=== PATIENT | male | born 2000 | race Caucasian/White ===

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

== ENCOUNTER 2018-01-29 21:08 | Emergency (ER) | payer MEDICAID ==
[2018-01-30] MEDS ORDERED: SILVER SULFADIAZINE 1% CREAM 50 GM TP ONE (01:06)
[2018-01-30] MEDS ORDERED: HYDROCODONE/ACETAMINOPHEN 5-325 MG TABLET PO ONE (01:06)
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
[2018-01-30] MEDS ORDERED: SILVER SULFADIAZINE 1% CREAM 25 GM TP ONE (01:22)
[2018-01-30 01:45] VITALS: BP 129/67
== END 2018-01-30 01:45 | disposition home or self-care (01) ==
LOC: ER 21:08
DX: T23.202A Burn of second degree of left hand, unspecified site, initial encounter (principal); T23.232A Burn of second degree of multiple left fingers (nail), not including thumb, initial encounter; X19.XXXA Contact with other heat and hot substances, initial encounter; F17.200 Nicotine dependence, unspecified, uncomplicated
CPT/HCPCS: 99283; J3490

== ENCOUNTER 2018-04-06 13:21 | Emergency (ER) | payer SELFPAY ==
[2018-04-06 13:28] VITALS: BP 126/79
[2018-04-06] MEDS ORDERED: IBUPROFEN 800 MG TABLET PO ONE (13:48)
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
--- NOTE | 2018-04-06 13:59 | RADIOLOGY REPORT (SQ) ---
EXAM DESCRIPTION: HAND LEFT 3 VIEWS COMPLETED DATE/TIME: 04/06/2018 1:51 pm REASON FOR STUDY: pain and injury COMPARISON: None. EXAM PARAMETERS: NUMBER OF VIEWS: Three views. TECHNIQUE: AP, lateral and oblique radiographic images acquired of the left hand. LIMITATIONS: None. FINDINGS: MINERALIZATION: Normal. BONES: Transverse fracture of the midshaft of the 5th metacarpal with angulation. JOINTS: No effusions. SOFT TISSUES: Soft tissue swelling. No foreign body. OTHER: No other significant finding. IMPRESSION: FRACTURE OF THE MIDSHAFT OF THE 5TH METACARPAL WITH ANGULATION. TECHNICAL DOCUMENTATION: JOB ID: [id number] [employer]- All Rights Reserved Reading location - IP/workstation name: [email or web address]
== END 2018-04-06 14:55 | disposition home or self-care (01) ==
LOC: ER 13:21
PROC: 2W3FX1Z Immobilization of Left Hand using Splint (ICD-10-PCS; principal; 2018-04-06)
DX: S62.327A Displaced fracture of shaft of fifth metacarpal bone, left hand, initial encounter for closed fracture (principal); W22.01XA Walked into wall, initial encounter; Y92.89 Other specified places as the place of occurrence of the external cause; F17.210 Nicotine dependence, cigarettes, uncomplicated
CPT/HCPCS: 99283; 99406

== ENCOUNTER 2018-09-20 16:44 | Emergency (ER) | payer SELFPAY ==
--- NOTE | 2018-09-20 17:10 | ER Document Report ---
HPI - HPI Patient complains to provider of: urgency and burning with urination x 3 days Onset/Duration: Sudden Quality of pain: Stabbing Pain Level: 3 Associated Symptoms: None Exacerbated by: Denies Relieved by: Denies Similar symptoms previously: No Recently seen / treated by doctor: No Notes: None onset 3 days ago. States burning at tip with urination, reports urgency. Patient is sexually active with his girlfriend, does not use protection. Denies any lesions. Denies testicular pain. denies fevers, chills, chest pain, palpitations, shortness of breath, abdominal pain, hematuria, LH, dizziness, syncope, headaches,muscle paralysis, weakness in bilateral upper or lower extremities equally or rash. Denies IV drug use. Past Medical History - General Information source: Patient - Social History Smoking Status: Unknown if Ever Smoked Family History: Reviewed & Not Pertinent Renal/ Medical History: Denies: Hx Peritoneal Dialysis Musculoskeletal Medical History: Reports Hx Musculoskeletal Trauma Traumatic Medical History: Reports: Hx Fractures - Immunizations Immunizations up to date: Yes Vertical Provider Document - CONSTITUTIONAL Agree With Documented VS: Yes Notes: PHYSICAL EXAMINATION: GENERAL: Well-appearing, well-nourished and in no acute distress. HEAD: Atraumatic, normocephalic. EYES: Pupils equal round and reactive to light, extraocular movements intact, sclera anicteric, conjunctiva are normal. ENT: Nares patent, oropharynx clear without exudates. Moist mucous membranes. NECK: Normal range of motion, supple without lymphadenopathy LUNGS: Breath sounds clear to auscultation bilaterally and equal. No wheezes rales or rhonchi. HEART: Regular rate and rhythm without murmurs ABDOMEN: Soft, nontender, nondistended abdomen. No guarding, no rebound. No masses appreciated. Musculoskeletal: Normal range of motion, no pitting or edema. No cyanosis. : refused exam NEUROLOGICAL: Cranial nerves grossly intact. Normal speech, normal gait. Normal sensory, motor exams PSYCH: Normal mood, normal affect. SKIN: Warm, Dry, normal turgor, no rashes or lesions noted. - INFECTION CONTROL TRAVEL OUTSIDE OF THE [place] IN LAST 30 DAYS: No Course - Re-evaluation Re-evalutation: 09/20/18 18:28 Patient treated with azithromycin 1 g and Rocephin 250 mg IM for treatment of chlamydia and gonorrhea. will call with results. Do not engage in sexual intercourse for 7-10 days after treatment. Advised that partner needs to be treated as well so you are not reinfected. Pt verbalizes that understands the risks that come with having unprotected sex. discussed safe sex, using protection. pt was tx'd for G/C at this visit. advised to have protected sex always, go to [facility]CP of the [facility] for further blood testing for HIV, hepatitis C, etc. Pt verbalized understanding of these instructions and agreed with plan of care. You have been treated with azithromycin 1 g and Rocephin 250 mg IM for treatment of chlamydia and gonorrhea. Do not engage in sexual intercourse for 7- 10 days after treatement. discussed safe sex, using protection. pt was tx'd for G/C at this visit. Advised to have protected sex always, go to PCP of the Health Dept for further blood testing for HIV, hepatitis C, etc. - Vital Signs Vital signs: Temp Pulse Resp BP Pulse Ox 98.2 F 92 16 131/71 H 96 09/20/18 16:51 09/20/18 16:51 09/20/18 16:51 09/20/18 16:51 09/20/18 16:51 Discharge - Discharge Clinical Impression: Burning with urination, Urgency of urination, Urethritis Condition: Stable Disposition: HOME, SELF-CARE Additional Instructions: Urethritis You have urethritis, an infection of the urethra. The usual symptoms are pain on urination and discharge. The infection is often caused by gonorrhea or chlamydia. Treatment is antibiotics. In addition, any sexual contacts should be evaluated by a physician as soon as possible. As this infection can be transmitted sexually, refrain from sexual activity until the infection is confirmed as healed by your physician. If gonorrhea or chlamydia is found on culture, the health department must be notified. Call the doctor at once if you develop difficulty passing your urine, high fever, rash, joint swelling, or other new symptoms. Return immediately for any new or worsening symptoms. Follow up with primary care provider, call tomorrow to make followup appointment. Forms: Return to Work Referrals: CHANDRA MUELLER MD [[employer] STAFF] - Follow up as needed
[2018-09-20] MEDS ORDERED: CEFTRIAXONE INJ 250 MG VIAL IM ONE (17:15)
[2018-09-20] MEDS ORDERED: LIDOCAINE 1% INJ-PF (10 MG/ML) 30 ML SDV INJ ONE (17:15)
[2018-09-20] MEDS ORDERED: AZITHROMYCIN 1 GM SUSP PACKET PO ONE (17:15)
[2018-09-20] MEDS ORDERED: AZITHROMYCIN 250 MG TABLET PO ONE (17:48)
[2018-09-20 18:00] LABS: APPEARANCE,URINE SLIGHTLY-CLOUDY; BILIRUBIN,URINE NEGATIVE (NEGATIVE); COLOR,URINE YELLOW; GLUCOSE, URINE NEGATIVE (NEGATIVE); KETONES,URINE NEGATIVE (NEGATIVE); LEUKOCYTE ESTERASE,URINE NEGATIVE (NEGATIVE); NITRITE,URINE NEGATIVE (NEGATIVE); PROTEIN,URINE NEGATIVE (NEGATIVE); URINE SPECIFIC GRAVITY 1.023
[2018-09-20 19:07] VITALS: BP 114/72
[2018-09-20 19:10] LABS: CHLAM PCR NOT DETECTED (NOT DETECT); GON PCR NOT DETECTED (NOT DETECT)
== END 2018-09-20 19:05 | disposition home or self-care (01) ==
LOC: ER 16:44
DX: N34.2 Other urethritis (principal); R39.15 Urgency of urination; R30.0 Dysuria
CPT/HCPCS: 99283; 96372; 81001; 87491; 87591; J3490; J0696